=== PATIENT | female | born 1950 | race Caucasian/White ===

== ENCOUNTER 2022-02-06 08:17 | Outpatient (CLI) | payer MEDICARE, OTHER | END 2022-02-06 08:18 | disposition home or self-care (01) | LOC: CSHLAB 08:17 | PROVIDERS: ATTEND Internal Medicine Gastroenterology | DX: Z20.822 Contact with and (suspected) exposure to COVID-19 (principal); K63.5 Polyp of colon | CPT/HCPCS: 87811 ==

== ENCOUNTER 2022-02-09 08:07 | Day surgery (SDC) | payer MEDICARE, MEDICAID ==
[2022-02-05 11:54] VITALS: BMI 40.4
[2022-02-09] MEDS ORDERED: Lidocaine 1% MPF 2 ML VIAL ONE (10:39)
[2022-02-09] MEDS ORDERED: PROPOFOL 60 ML ONE (11:13)
[2022-02-09] MEDS ORDERED: Lidocaine 1% PF 5 ML VIAL ONE (11:13)
== END 2022-02-09 13:25 | disposition home or self-care (01) ==
LOC: CSHSDC 08:07
PROVIDERS: ATTEND Internal Medicine Gastroenterology
PROC: 0DBN8ZZ Excision of Sigmoid Colon, Via Natural or Artificial Opening Endoscopic (ICD-10-PCS; principal; 2022-02-09)
DX: Z12.11 Encounter for screening for malignant neoplasm of colon (principal); K51.40 Inflammatory polyps of colon without complications; K64.9 Unspecified hemorrhoids; I10 Essential (primary) hypertension; E78.5 Hyperlipidemia, unspecified; G47.30 Sleep apnea, unspecified; Z86.010 Personal history of colon polyps; Z88.2 Allergy status to sulfonamides; Z20.822 Contact with and (suspected) exposure to COVID-19
CPT/HCPCS: 88305; J2704